=== PATIENT | male | born 1975 | race Two or more races ===

== ENCOUNTER 2025-06-27 16:48 | Emergency (ER) | payer BC, SELFPAY ==
[2025-06-27 16:53] VITALS: PULSE 78; O2SAT 99; BMI 29.1
[2025-06-27 17:04] VITALS: BP 219/106; PULSE 78; RESP 18; TEMP 37.2; O2SAT 98
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
--- NOTE | 2025-06-27 17:13 | PC.NURSE ---
[facility] CONTACTED TO SEE IF TRANSFER IS REQUIRED OR CAN PT FOLLOW UP AT [facility] CENTER. I SPOKE WITH VICK, INFO GIVEN CALL DIRECTED TO DR SEPULVEDA AT THIS TIME.
[2025-06-27] MEDS: LIDOCAINE/PRILOCAINE CR 5GM 5 GM TUBE TOP ×2 (17:16→18:00)
[2025-06-27] MEDS: HYDROcodone/APAP 5/325 TABLET 1 TAB PO (17:16)
[2025-06-27] MEDS: MORPHINE SULF INJ 10 MG/ML VIAL 4 MG IVP (17:46)
[2025-06-27] MEDS: BACITRACIN OINT 15 GM TUBE TOP (17:47)
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
[2025-06-27] MEDS: CIPROFLOXACIN/D5w 400 MG IVPB 400 MG/200 ML BAG 200 MG IV (19:20)
[2025-06-27 19:28] VITALS: BP 160/96; PULSE 70; RESP 16; O2SAT 98
== END 2025-06-27 20:35 | disposition home or self-care (01) ==
PROVIDERS: Emergency Provider Emergency Medicine; PCP Internal Medicine
DX: T24.221A Burn of second degree of right knee, initial encounter (principal); T20.10XA Burn of first degree of head, face, and neck, unspecified site, initial encounter; T22.112A Burn of first degree of left forearm, initial encounter; T22.111A Burn of first degree of right forearm, initial encounter; T31.0 Burns involving less than 10% of body surface; X08.8XXA Exposure to other specified smoke, fire and flames, initial encounter; Y93.89 Activity, other specified
CPT/HCPCS: 96365; 96375; 99283; J0744; J2270; A9270